=== PATIENT | male | born 1965 ===

== ENCOUNTER → 2021-07-03 | Emergency (ER) | payer SELFPAY ==
[~2021-07-03] VITALS: Ht 177.8 cm; Wt 85.0 kg
[2021-07-03 19:20] VITALS: BP 121/72
== END ==
LOC: ED 21:03
DX: S09.90XA Unspecified injury of head, initial encounter (principal); F10.121 Alcohol abuse with intoxication delirium; Y90.0 Blood alcohol level of less than 20 mg/100 ml; F17.200 Nicotine dependence, unspecified, uncomplicated; Y04.8XXA Assault by other bodily force, initial encounter; Y93.89 Activity, other specified; Y92.59 Other trade areas as the place of occurrence of the external cause; Y99.8 Other external cause status